=== PATIENT | female | born 1980 | race Caucasian/White ===

== ENCOUNTER 2016-06-27 21:10 | Emergency (ER) | payer OTHER ==
[~2016-06-27] VITALS: Ht 162.6 cm; Wt 90.5 kg
[~2016-06-27 21:10] MED LIST: ALBU8.5H3 INH; BEN25 PO; CIPR500T4 PO; EPIN0.3P4 INJ; IBUP-1542 PO; METR500T PO; MONT10TA21 PO; PRED20TA PO
[2016-06-27 21:13] VITALS: Ht 162.6 cm; Wt 90.5 kg
[2016-06-27] MEDS ORDERED: morphine 4 MG/ML VIAL IV STA (23:06)
[2016-06-27] MEDS ORDERED: ONDANSETRON 4 MG INJ IV STA (23:06)
[2016-06-27] MEDS ORDERED: SOD CHLORIDE 0.9% 1,000 ML IV STA (23:06)
--- NOTE | 2016-06-27 23:47 | ERD ---
ER Documentation Chief Complaint Date/Time DATE: 06/27/16 TIME: 23:44 Chief Complaint Right Lower quadrant pain radiating to right low back pain since 2 hours ago, denies injury HPI 35-year-old female presents here in emergency department for complaints of right lower quadrant pain radiating to the right lower back area started 2 hours prior to arrival, describing the pain as sharp pain, 8/10 scale, not better with anything, worse upon movement at times. Patient denies any hematuria or dysuria. Patient denies any fever or chills. Patient denies any nausea or vomiting. Patient denies any recent travel, denies any trauma in the back or in the abdomen. ROS All systems reviewed and are negative except as per history of present illness. Medications Home Meds Active Scripts Epinephrine (Epipen 2-Fritz) 0.3 Mg/0.3 Ml Pen.injctr, 1 EA INJ ONCE Y for ALLERGIC REACTION, #1 EA Prov:DANELLE AVELAR DO 01/21/16 Diphenhydramine Hcl* (Benadryl*) 25 Mg Cap, 25 MG PO Q6 Y for ITCHING/RASH, #30 TAB Prov:DANELLE AVELAR DO 01/21/16 Prednisone* (Prednisone*) 20 Mg Tab, 60 MG PO DAILY for 5 Days, TAB Prov:DANELLE AVELAR DO 01/21/16 Ibuprofen* (Motrin*) 600 Mg Tab, 600 MG PO Q6H Y for PAIN AND OR ELEVATED TEMP, #30 TAB Prov:KAE RESTREPO MD 10/22/15 Ciprofloxacin Hcl* (Ciprofloxacin Hcl*) 500 Mg Tablet, 500 MG PO BID for 7 Days , #14 TAB Prov:KAE RESTREPO MD 10/22/15 Metronidazole* (Flagyl*) 500 Mg Tablet, 500 MG PO TID for 7 Days, #21 TAB Prov:KAE RESTREPO MD 10/22/15 Reported Medications Albuterol Sulfate* (Proair HFA*) 8.5 Gm Hfa.aer.ad, 2 PUFF INH Q6H Y for WHEEZING AND SOB, #1 INHALER 10/22/15 Montelukast Sodium* (Singulair*) 10 Mg Tablet, 10 MG PO NEDDED 06/30/11 Allergies Allergies: Coded Allergies: No Known Drug Allergies (Verified Allergy, Unknown, 01/21/16) Uncoded Allergies: SEASONAL (Allergy, Unknown, 10/22/15) PMhx/Soc History of Surgery: Yes (c/section x 1) Anesthesia Reaction: No Hx Neurological Disorder: No Hx Respiratory Disorders: Yes (asthma) Hx Cardiac Disorders: No Hx Psychiatric Problems: No Hx Miscellaneous Medical Probl: No (VERTIGO,CHRONIC BRONCHITIS,SICKLE CELL TRAIT) Hx Alcohol Use: No Hx Substance Use: No Hx Tobacco Use: No Smoking Status: Never smoker FmHx Family History: No coronary disease, No diabetes, No other Physical Exam Vitals Vital Signs Date Time Temp Pulse Resp B/P Pulse Ox O2 Delivery O2 Flow Rate FiO2 06/27/16 21:13 98.1 70 20 139/81 100 Physical Exam GENERAL: The patient is well developed and appropriate for usual state of health, in no apparent distress. CHEST: Clear to auscultation bilaterally. There are no rales, wheezes or rhonchi. HEART: Regular rate and rhythm. No murmurs, clicks, rubs or gallops. No S3 or S4. ABDOMEN: Soft, nontender and nondistended. Good bowel sounds. No rebound or guarding. No gross peritonitis. No gross organomegaly or masses. No Sims sign or McBurney point tenderness. BACK: No midline or flank tenderness. EXTREMITIES: Equal pulses bilaterally. There is no peripheral clubbing, cyanosis or edema. No focal swelling or erythema. Full range of motion. Grossly neurovascularly intact. NEURO: Alert and oriented. Cranial nerves 2-12 intact. Motor strength in all 4 extremities with 5/5 strength. Sensation grossly intact. Normal speech and gait. SKIN: There is no apparent rash or petechia. The skin is warm and dry. HEMATOLOGIC AND LYMPHATIC: There is no evidence of excessive bruising or lymphedema. No gross cervical, axillary, or inguinal lymphadenopathy. Result Diagram: 06/27/16232906/27/162329 Results 24 hrs Laboratory Tests Test 06/27/16 23:23 06/27/16 23:30 Urine Color LT. YELLOW Urine Clarity CLEAR Urine pH 6.0 Urine Specific Dawes 1.015 Urine Ketones NEGATIVE Urine Nitrite NEGATIVE Urine Bilirubin NEGATIVE Urine Urobilinogen 0.2 E.U./dL Urine Leukocyte Esterase NEGATIVE Urine Microscopic RBC 10-25/HPF Urine Microscopic WBC 0-2/HPF Urine Squamous Epithelial Cells RARE Urine Hemoglobin 3+ Urine Glucose NEGATIVE% Urine Total Protein NEGATIVE White Blood Count 8.510^3/ul Red Blood Count 4.3910^6/ul Hemoglobin 12.9g/dl Hematocrit 38.1% Mean Corpuscular Volume 86.8fl Mean Corpuscular Hemoglobin 29.4pg Mean Corpuscular Hemoglobin Concent 33.9g/dl Red Cell Distribution Width 13.0% Platelet Count 20449^3/UL Mean Platelet Volume 10.4fl Neutrophils % 54.0% Lymphocytes % 35.3% Monocytes % 7.3% Eosinophils % 2.8% Basophils % 0.4% Nucleated Red Blood Cells % 0.0/100WBC Neutrophils # 4.610^3/ul Lymphocytes # 3.010^3/ul Monocytes # 0.610^3/ul Eosinophils # 0.210^3/ul Basophils # 0.010^3/ul Nucleated Red Blood Cells # 0.010^3/ul Sodium Level 137mmol/L Potassium Level 4.2mmol/L Chloride Level 105mmol/L Carbon Dioxide Level 25mmol/L Anion Gap 11 Blood Urea Nitrogen 13mg/dl Creatinine 0.71mg/dl Glucose Level 101mg/dl Calcium Level 9.6mg/dl Total Bilirubin 0.2mg/dl Direct Bilirubin 0.00mg/dl Indirect Bilirubin 0.2mg/dl Aspartate Amino Transf (AST/SGOT) 28IU/L Alanine Aminotransferase (ALT/SGPT) 36IU/L Alkaline Phosphatase 108IU/L Total Protein 7.3g/dl Albumin 4.2g/dl Globulin 3.10g/dl Albumin/Globulin Ratio 1.35 Lipase 107U/L Current Medications Medications (Trade) Dose Ordered Sig/Pancho Route PRN Reason Start Time Stop Time Status Last Admin Dose Admin Sodium Chloride (NS) 1,000 ml @ 1,000 mls/hr Q1H STAT IV 06/27/16 23:06 06/28/16 00:05 DC 06/27/16 23:35 Morphine Sulfate (morphine) 4 mg ONCE STAT IV 06/27/16 23:06 06/27/16 23:07 DC 06/27/16 23:34 Ondansetron HCl (Zofran Inj) 4 mg ONCE STAT IV 06/27/16 23:06 06/27/16 23:07 DC 06/27/16 23:34 Patient was given medication for pain here in emergency department, after treatment, patient verbalized feeling much better. Patient's pain is improved. Patient was given Zofran here in the emergency department. After treatment, patient was able to tolerate po fluids here in the emergency department without any vomiting. There is no signs and symptoms of dehydration. Normal saline IV bolus was given here in emergency department for rehydration, patient tolerated IV fluids. PROCEDURE: CT ABDOMEN/PELVIS WITHOUT CONTRAST CLINICAL INDICATION: 35-year-old female with abdominal pain. TECHNIQUE: The study was performed utilizing a [employer] VCT 64-slice CT scanner. Direct axial sections were obtained through the abdomen and pelvis without the use of intravenous contrast material. Sagittal and coronal reformations were obtained. One or more of the following dose reduction techniques were utilized: automated exposure control, adjustment of the mA and/ or kV according to patient's size or use of iterative reconstruction technique. The images were reviewed on a PACS workstation. CTD/vol = 19.8 mGy; Total Exam DLP = 1240.1 mGy-cm. COMPARISON: Ultrasound pelvis October 22, 2015; CT abdomen/pelvis October 22, 2015. FINDINGS: There is trace bibasilar subsegmental atelectasis. There is no evidence for significant pleural effusion. The liver has a normal size and contour without focal areas of abnormal density. No intrahepatic nor extrahepatic biliary ductal dilatation is seen. The gallbladder demonstrates no wall thickening nor pericholecystic fluid. No biliary stones are evident. The pancreas is without areas of abnormal attenuation. The spleen is identified and has a normal size without abnormal density. The adrenal glands are unremarkable. The kidneys are without abnormal density. No hydroureteronephrosis nor nephroureterolithiasis is evident. The urinary bladder contains urine. There is mild retained stool throughout the colon without gross bowel obstruction. Multiple diverticula seen within the colon most prominently within the sigmoid region without surrounding inflammatory changes. The appendix is visualized and is without abnormal thickening or surrounding inflammatory reaction. The uterus is unremarkable. There is a right ovarian cyst measuring 1.9 x 2.0 x 1.9 cm. The aortoiliac vessels are without aneurysmal dilatation. The osseous structures are intact. IMPRESSION: 1. No CT evidence for obstructive uropathy or renal calculi. 2. Retained stool without obstruction. 3. Colonic diverticulosis. 4. No CT evidence for appendicitis. 5. Right ovarian cyst. .Haim Noble MD, MD Date Time Electronically viewed and signed by .Haim Noble MD, MD on 06/28/2016 00:40 .M/ CC: REBEKA LAGOS [employer] Procedures/MDM Medical Decision Making: Patient's pain is nonspecific at this time, possible from the right ovarian cyst, also can be from her currently being in her menstruation. It also from constipation, patient as retained stool in the colon. There is low suspicion for abdominal emergencies at this time. Patients abdominal exam is normal at this time. Patients radiology exam does not show any abdominal emergencies at this time. There is low suspicion for appendicitis , cholecystitis, abdominal aortic aneurysms or peritonitis at this time. There is low suspicion for sepsis. Patient appears well and is hemodynamically stable. Disposition: Home. Condition: Stable Prescription tramadol, Zofran, ibuprofen, Colace, MiraLAX Instructions: Patient is advised to take medications as prescribed. Patient is advised to rest, increase fluid intake and do brat diet for next 1-2 days and progress as tolerated. Patient is advised that if symptoms are worse, severe abdominal pain, uncontrolled vomiting, high fever, severe flank pain, worst signs and symptoms, to return to the emergency department immediately. Otherwise, patient can follow up with primary care doctor in 5-7 days. Departure Diagnosis: Primary Impression: Abdominal pain Abdominal location: lower abdomen, unspecified Qualified Code: R10.30 - Lower abdominal pain Condition: Stable Patient Instructions: Abdominal Pain Additional Instructions: Patient is advised to take medications as prescribed. Patient is advised to rest , increase fluid intake and do brat diet for next 1-2 days and progress as tolerated. Patient is advised that if symptoms are worse, severe abdominal pain , uncontrolled vomiting, high fever, severe flank pain, worst signs and symptoms , to return to the emergency department immediately. Otherwise, patient can follow up with primary care doctor in 5-7 days. REBEKA LAGOS [employer] Jun 27, 2016 23:47
[2016-06-27 23:53] LABS: ADD SCAN DIFF NO
[2016-06-27 23:56] LABS: BASOPHILS % 0.4 % (0.0-2.0); EOSINOPHILS # 0.2 10^3/ul (0.0-0.5); EOSINOPHILS % 2.8 % (0.0-7.0); HEMATOCRIT 38.1 % (37.0-47.0); HEMOGLOBIN 12.9 g/dl (12.0-16.0); LYMPHOCYTES % 35.3 % (15.0-51.0); MEAN CORPUSCULAR HEMOGLOBIN 29.4 pg (29.0-33.0); MEAN CORPUSCULAR HGB CONC 33.9 g/dl (32.0-37.0); MEAN CORPUSCULAR VOLUME 86.8 fl (82.0-101.0); MEAN PLATELET VOLUME 10.4 fl (7.4-10.4); MONOCYTE # 0.6 10^3/ul (0.3-0.9); MONOCYTES % 7.3 % (0.0-11.0); NEUTROPHIL # 4.6 10^3/ul (1.6-7.5); PLATELET COUNT 236 10^3/UL (140-415); RED BLOOD COUNT 4.39 10^6/ul (4.20-5.40); WHITE BLOOD COUNT 8.5 10^3/ul (4.8-10.8)
[2016-06-28 00:01] LABS: ADD UMIC YES; URINE BILIRUBIN (Dip) NEGATIVE (NEGATIVE); URINE BLOOD (Dip) 3+ (NEGATIVE); URINE COLOR LT. YELLOW (YELLOW); URINE GLUCOSE (Dip) NEGATIVE (NEGATIVE); URINE KETONES (Dip) NEGATIVE (NEGATIVE); URINE LEUKOCYTE ESTERASE (Dip) NEGATIVE (NEGATIVE); URINE NITRITE (Dip) NEGATIVE (NEGATIVE); URINE TOTAL PROTEIN (Dip) NEGATIVE (NEGATIVE); URINE UROBILINOGEN (Dip) 0.2 E.U./dL (0.1-1.0)
[2016-06-28 00:13] LABS: ALBUMIN 4.2 g/dl (3.3-4.9); ALBUMIN/GLOBULIN RATIO 1.35; BILIRUBIN,INDIRECT 0.2 mg/dl (0-1.1); BILIRUBIN,TOTAL 0.2 mg/dl (0.2-1.3); CALCIUM 9.6 mg/dl (8.4-10.2); CREATININE 0.71 mg/dl (0.44-1.00); POTASSIUM 4.2 mmol/L (3.5-5.1); TOTAL PROTEIN 7.3 g/dl (6.1-8.1)
[2016-06-28 00:16] LABS: SQUAMOUS EPITHELIAL CELL,UR RARE
--- NOTE | 2016-06-28 00:40 | RADRPT ---
PROCEDURE: CT ABDOMEN/PELVIS WITHOUT CONTRAST CLINICAL INDICATION: 35-year-old female with abdominal pain. TECHNIQUE: The study was performed utilizing a [employer] VCT 64-slice CT scanner. Direct axia l sections were obtained through the abdomen and pelvis without the use of intravenous contrast mate rial. Sagittal and coronal reformations were obtained. One or more of the following dose reduction t echniques were utilized: automated exposure control, adjustment of the mA and/or kV according to pat ient's size or use of iterative reconstruction technique. The [facility] CTD/vol = 19.8 mGy; Total Exam DLP = 1240.1 mGy-cm. COMPARISON: Ultrasound pelvis October 22, 2015; CT abdomen/pelvis October 22, 2015. FINDINGS: There is trace bibasilar subsegmental atelectasis. There is no evidence for significant pleural eff usion. The liver has a normal size and contour without focal areas of abnormal density. No intrahep atic nor extrahepatic biliary ductal dilatation is seen. The gallbladder demonstrates no wall thicke angelica nor pericholecystic fluid. No biliary stones are evident. The pancreas is without areas of abno rmal attenuation. The spleen is identified and has a normal size without abnormal density. The adre nal glands are unremarkable. The kidneys are without abnormal density. No hydroureteronephrosis nor nephroureterolithiasis is evident. The urinary bladder contains urine. There is mild retained stool throughout the colon without gross bowel obstruction. Multiple diverticula seen within the colon mo st prominently within the sigmoid region without surrounding inflammatory changes. The appendix is visualized and is without abnormal thickening or surrounding inflammatory reaction. The uterus is unremarkable. There is a right ovarian cyst measuring 1.9 x 2.0 x 1.9 cm. The aortoiliac vessels ar e without aneurysmal dilatation. The osseous structures are intact. IMPRESSION: 1. No CT evidence for obstructive uropathy or renal calculi. 2. Retained stool without obstruction. 3. Colonic diverticulosis. 4. No CT evidence for appendicitis. 5. Right ovarian cyst. .Haim Noble MD, MD Date Time Electronically viewed and signed by .Haim Noble MD, MD on 06/28/2016 00:40 .Jose/
[2016-06-28] MEDS ORDERED: ONDA4TAB14 PO (01:05)
[2016-06-28] MEDS ORDERED: TRAM50TA2 PO (01:05)
[2016-06-28] MEDS ORDERED: POLY17PO6 PO (01:05)
[2016-06-28] MEDS ORDERED: DOCU-144 PO (01:05)
[2016-06-28] MEDS ORDERED: IBUP400T22 PO (01:05)
[2016-06-28 01:11] VITALS: BP 114/76; PULSE 60; RESP 18; TEMP 97.7
== END 2016-06-28 01:20 | disposition home or self-care (01) ==
LOC: FTE 21:10
DX: R10.31 Right lower quadrant pain (principal); J45.909 Unspecified asthma, uncomplicated
CPT/HCPCS: 36415; 74176; 80053; 81001; 83690; 85025; 96361; 96374; 96375; J2270; J2405; J7030; Z7502; 81003